=== PATIENT | female | born 1975 | race Caucasian/White ===

== ENCOUNTER 2017-04-09 22:06 | Emergency (ER) | payer MEDICAID ==
[~2017-04-09] VITALS: Ht 172.7 cm; Wt 72.6 kg
[2017-04-09 22:21] VITALS: BP 135/83
[2017-04-09] MEDS ORDERED: IBUPROFEN 600 MG TABLET PO ONE (23:00)
== END 2017-04-09 23:16 | disposition home or self-care (01) ==
LOC: ER 22:06
DX: M25.512 Pain in left shoulder (principal); V89.2XXA Person injured in unspecified motor-vehicle accident, traffic, initial encounter; Y93.89 Activity, other specified; Y92.89 Other specified places as the place of occurrence of the external cause; Y99.8 Other external cause status; E03.9 Hypothyroidism, unspecified
CPT/HCPCS: 73030; 99284; A4606; Z7610

== ENCOUNTER 2017-12-06 04:16 | Emergency (ER) | payer BC ==
[~2017-12-06] VITALS: Ht 170.2 cm; Wt 98.4 kg
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
--- NOTE | 2017-12-06 05:13 | NUR ---
Patient discharged to home in stable condition. Written and verbal after care instructions given. Patient verbalizes understanding of instruction. Patient is ambulatory with steady gait. vss. No further complaints.
[2017-12-06 05:14] VITALS: BP 128/86
== END 2017-12-06 05:14 | disposition home or self-care (01) ==
LOC: ER 04:26
DX: R07.89 Other chest pain (principal); F41.9 Anxiety disorder, unspecified; E03.9 Hypothyroidism, unspecified
CPT/HCPCS: 93005; 99283; A4606; Z7610

== ENCOUNTER 2019-12-20 22:17 | Emergency (ER) | payer SELFPAY ==
[~2019-12-20] VITALS: Ht 170.2 cm; Wt 90.7 kg
--- NOTE | 2019-12-20 23:15 | NUR ---
RT THUMB WOUND CARE IN PROGRESS AT THE BEDSIDE.
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
[2019-12-20] MEDS ORDERED: LIDOCAINE HCL/PF 1% 30 ML SDV ONE (23:45)
--- NOTE | 2019-12-20 23:45 | NUR ---
XRAY IN PROGRESS AT THE BEDSIDE.
--- NOTE | 2019-12-20 23:57 | NUR ---
Carol Ann PERRY, PAC IS AT THE BEDSIDE SUTURING PT'S THUMB
[2019-12-21 01:44] VITALS: BP 127/85
== END 2019-12-21 01:15 | disposition home or self-care (01) ==
LOC: ER 22:21
DX: S61.011A Laceration without foreign body of right thumb without damage to nail, initial encounter (principal); E03.9 Hypothyroidism, unspecified; W25.XXXA Contact with sharp glass, initial encounter; Y93.89 Activity, other specified; Y92.89 Other specified places as the place of occurrence of the external cause; Y99.8 Other external cause status
CPT/HCPCS: 12001; 73140; 99283; A6403; J3490

== ENCOUNTER 2019-12-29 09:45 | Emergency (ER) | payer SELFPAY ==
[~2019-12-29] VITALS: Ht 170.2 cm; Wt 90.7 kg
[2019-12-29 09:57] VITALS: BP 122/76
== END 2019-12-29 10:35 | disposition home or self-care (01) ==
LOC: ER 09:47
DX: S61.011D Laceration without foreign body of right thumb without damage to nail, subsequent encounter (principal); E03.9 Hypothyroidism, unspecified; W26.0XXD Contact with knife, subsequent encounter

== ENCOUNTER 2020-08-23 21:53 | Emergency (ER) | payer BC, MEDICAID ==
[~2020-08-23] VITALS: Ht 170.2 cm; Wt 95.3 kg
--- NOTE | 2020-08-23 22:06 | NUR ---
C/O L UNDERARM PAIN RADIATING TO L SHOULDER BLADE X10 DAYS. PT ALSO W/ C/O HIGH BLOODPRESSURE. PT AMBULATORY TO BED 2. WAS PLACED ON A MONITOR. WILL CONT TO MONITOR ,
--- NOTE | 2020-08-23 22:13 | NUR ---
DR SENIOR AT BED SIDE
[2020-08-23 22:35] LABS: BASOPHILS # (AUTO) 0.1 /CMM (0.0-0.2); BASOPHILS % (AUTO) 0.7 % (0.0-2.0); EOSINOPHILS % (AUTO) 0.7 % (0.0-6.0); HEMATOCRIT 41 % (33-45); HEMOGLOBIN 13.9 g/dL (11.5-14.8); LYMPHOCYTES # (AUTO) 1.6 /CMM (0.8-4.8); LYMPHOCYTES % (AUTO) 19.9 % (20.0-44.0); MEAN CORPUSCULAR HGB CONC 34 g/dl (31.0-36.0); MEAN CORPUSCULAR VOLUME 84 fL (82-100); MONOCYTES # (AUTO) 0.5 /CMM (0.1-1.30); MONOCYTES % (AUTO) 6.3 % (2.0-12.0); NEUTROPHILS # (AUTO) 5.9 /CMM (1.8-8.9); NEUTROPHILS % (AUTO) 72.4 % (43.0-81.0); PLATELET COUNT (AUTO) 223 /CMM (150-450); RED BLOOD CELL COUNT(AUTO) 4.87 MIL/uL (4.0-5.2); WHITE BLOOD COUNT (AUTO) 8.1 K/uL (4.3-11.0)
[2020-08-23 22:46] LABS: CALCIUM, SERUM 9.5 mg/dL (8.5-10.1); CARBON DIOXIDE 29 mmol/L (21-32); CHLORIDE 101 mmol/L (98-107); CREATININE 0.9 mg/dL (0.6-1.3); GLUCOSE 105 mg/dL (74-106); POTASSIUM 3.8 mmol/L (3.5-5.1); SODIUM SERUM 140 mmol/L (136-145); UREA NITROGEN, BLOOD 20 mg/dL (7-18)
--- NOTE | 2020-08-23 23:21 | NUR ---
MEDICALLY STABLE FOR D/C PER MD. IV removed. Catheter intact and site benign. Pressure and 4x4 applied to site. No bleeding noted.Patient discharged to home in stable condition. Written and verbal after care instructions given. Patient verbalizes understanding of instruction.
[2020-08-23 23:23] VITALS: BP 142/83
== END 2020-08-23 23:24 | disposition home or self-care (01) ==
LOC: ER 21:53
DX: M25.512 Pain in left shoulder (principal); R07.89 Other chest pain; E03.9 Hypothyroidism, unspecified
CPT/HCPCS: 36415; 71045-TC; 80048-TC; 84484-TC; 85025-TC

== ENCOUNTER 2023-04-03 17:44 | Emergency (ER) | payer MEDICAID ==
[~2023-04-03] VITALS: Ht 170.2 cm; Wt 90.7 kg
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
[2023-04-03] MEDS ORDERED: KETOROLAC TROMETHAMINE INJ 30 MG/ML VIAL ONE (20:28)
[2023-04-03] MEDS ORDERED: KETOROLAC TROMETHAMINE INJ 60 MG/2 ML VIAL IM ONE (20:30)
--- NOTE | 2023-04-03 21:13 | NUR ---
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
[2023-04-03] MEDS ORDERED: CYCL10TA9 PO (22:44)
[2023-04-03] MEDS ORDERED: NAPR-1009 PO (22:44)
[2023-04-03] MEDS ORDERED: METH4TAB17 PO (22:44)
--- NOTE | 2023-04-03 22:53 | NUR ---
Patient discharged to home in stable condition. Written and verbal after care instructions given. Patient verbalizes understanding of instruction.
[2023-04-03 22:54] VITALS: BP 118/71
== END 2023-04-03 22:55 | disposition home or self-care (01) ==
LOC: ER 18:05
DX: S39.012A Strain of muscle, fascia and tendon of lower back, initial encounter (principal); S13.4XXA Sprain of ligaments of cervical spine, initial encounter; M62.838 Other muscle spasm; M47.9 Spondylosis, unspecified; E03.9 Hypothyroidism, unspecified; V49.49XA Driver injured in collision with other motor vehicles in traffic accident, initial encounter; Y93.89 Activity, other specified; Y92.488 Other paved roadways as the place of occurrence of the external cause; Y99.8 Other external cause status
CPT/HCPCS: 99283; 96372; 72110; J1885

== ENCOUNTER 2025-10-19 19:16 | Emergency (ER) | payer MEDICAID ==
[~2025-10-19] VITALS: Ht 170.2 cm; Wt 95.3 kg
[~2025-10-19 19:16] MED LIST: CYCL10TA9 PO; METH4TAB17 PO; NAPR-1009 PO
[2025-10-19] MEDS ORDERED: SUCRALFATE 1 G/10 ML UDC ONE (21:26)
[2025-10-19] MEDS ORDERED: KETOROLAC TROMETHAMINE 15 MG/ML VIAL ONE (21:26)
[2025-10-19] MEDS ORDERED: PANTOPRAZOLE 40 MG VIAL ONE (21:26)
[2025-10-19] MEDS: SUCRALFATE 1 G TABLET PO ONE (21:37)
[2025-10-19] MEDS: PANTOPRAZOLE 80 MG in IV NS 0.9% 500 ML IV ONE (21:37)
[2025-10-19] MEDS: KETOROLAC TROMETHAMINE 15 MG/ML VIAL IV ONE (21:41)
[2025-10-19 21:53] LABS: PLATELET COUNT (AUTO) 252 K/uL (150-450); RED BLOOD CELL COUNT(AUTO) 4.92 MIL/uL (4.0-5.2); RED CELL DISTRIBUTION WIDTH 13.1 % (11.5-15.0); WHITE BLOOD COUNT (AUTO) 10.2 K/uL (4.3-11.0)
[2025-10-19 22:02] LABS: CALCIUM, SERUM 9.1 mg/dL (8.5-10.1); CREATININE 0.7 mg/dL (0.6-1.3); SODIUM SERUM 141.0 mmol/L (136-145); UREA NITROGEN, BLOOD 19.0 mg/dL (7-18)
[2025-10-19 22:06] LABS: ASPARTATE AMINOTRANSFERASE 312.0 U/L (15-37); TOTAL PROTEIN, SERUM 7.8 g/dL (6.4-8.2)
[2025-10-19] MEDS ORDERED: PANT40TA49 PO (22:09)
[2025-10-19] MEDS ORDERED: SUCR1TAB31 PO (22:09)
[2025-10-19] MEDS ORDERED: ONDA4TAB5 PO (23:17)
[2025-10-19 23:34] VITALS: BP 108/71; TEMP 98; O2SAT 99
== END 2025-10-19 23:34 | disposition home or self-care (01) ==
LOC: ER 19:17
DX: R10.13 Epigastric pain (principal); R11.0 Nausea; R05.9 Cough, unspecified; E03.9 Hypothyroidism, unspecified; Z91.048 Other nonmedicinal substance allergy status
CPT/HCPCS: 99285; 96374; 96375; 93005; 71045; 76705; 85025; 83690; 36415; 80053; 84484; 80320; J7040; J2470; A4223; J1885; G0480